=== PATIENT | female | born 1980 | race African-American/Black ===

== ENCOUNTER 2018-11-26 05:41 | Emergency (ER) | payer MEDICAID ==
[~2018-11-26] VITALS: Ht 154.9 cm; Wt 57.0 kg
[2018-11-26 07:30] VITALS: BP 118/72
== END 2018-11-26 08:15 | disposition home or self-care (01) ==
LOC: ER 06:28
DX: M25.531 Pain in right wrist (principal); M25.511 Pain in right shoulder; F12.10 Cannabis abuse, uncomplicated
CPT/HCPCS: 29125; 99283